=== PATIENT | female | born 1985 | race Caucasian/White ===

== ENCOUNTER 2018-09-15 05:36 | Emergency (ER) | payer OTHER ==
[~2018-09-15] VITALS: Ht 165.1 cm; Wt 77.1 kg
--- OUTSIDE RECORDS SUMMARY | 2018-09-15 05:43 | XMS REPORT | Continuity of Care Document ---
Author Organization Unknown Address Unknown Allergies There is no data. Medications There is no data. Problems There is no data. Procedures There is no data. Results There is no data. Encounters ACCT No. Visit Date/Time Discharge Status Pt. Type Provider Facility Loc./Unit Complaint [id number] 08/07/2018 15:00:00 08/07/2018 23:59:59 [facility] Outpatient [facility]
[2018-09-15] MEDS ORDERED: morphine INJ 10 MG/ML 1ML (SYR OR VIAL) IM STA (05:49)
[2018-09-15] MEDS ORDERED: ONDANSETRON 4 MG (ZOFRAN) ORAL DISSOLVE TAB PO STA (05:49)
[2018-09-15] MEDS ORDERED: BUPIVACAINE 0.5% 30 ML (SENSORCAINE) VIAL INJ ONE (06:00)
[2018-09-15] MEDS ORDERED: CEPHALEXIN 250 MG (KEFLEX) CAP PO ONE (06:00)
--- NOTE | 2018-09-15 06:00 | ED Upper Extremity ---
General Chief Complaint: Trauma-Non Activation Stated Complaint: CUT TIP OF LT RING FINGER OFF AT WORK Source: patient Exam Limitations: no limitations History of Present Illness Date Seen by Provider: September 15, 2018 Time Seen by Provider: 05:53 Initial Comments Patient is a 32 year old right handed female who presents with amputated distal fingertip of left ring finger. Injury occurred while at work while using a saw just prior to arrival. On exam, the patient has a partial amputation of the finger tip of the left index finger though the the fingernail with exposed cancellous bone. Onset: just prior to arrival Pain/Injury Location: left 2nd finger Allergies and Home Medications Allergies Coded Allergies: No Known Drug Allergies (Unverified , 09/15/18) Patient Home Medication List Home Medication List Reviewed: Yes Review of Systems Constitutional: no symptoms reported EENTM: no symptoms reported Respiratory: no symptoms reported Cardiovascular: no symptoms reported Gastrointestinal: no symptoms reported Genitourinary: no symptoms reported Musculoskeletal: see HPI Past [id number]-[id number] Hx Past Med/Social Hx: Reviewed Nursing Past Med/Soc Hx Patient Social History Recent Foreign Travel: No Contact w/Someone Who Travel: No Physical Exam Vital Signs Vital Signs - First Documented Capillary Refill : Height, Weight, BMI Height: '" Weight: lbs. oz. 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, no motor/sensory deficits, alert, oriented x 3 Progress/Results/Core Measures Results/Orders My Orders Orders - NOEL LOPEZ DO Ondansetron Oral Dissolve Tab (Zofran (09/15/18 05:49) Morphine Injection (Morphine Injection (09/15/18 05:49) Cephalexin Capsule (Keflex Capsule) (09/15/18 06:00) Bupivacaine 0.5% Injection (Sensorcaine (09/15/18 06:00) Finger(S) (09/15/18 05:49) Dipht,Pertuss(Acell),Tet Adult (Boostrix (09/15/18 06:15) Medications Given in ED Current Medications Medications Dose Ordered Sig/Elijah Route Start Time Stop Time Status Last Admin Dose Admin Bupivacaine HCl 30 ml ONCE ONCE INJ 09/15/18 06:00 09/15/18 06:01 DC 09/15/18 06:00 30 ML Cephalexin HCl 500 mg ONCE ONCE PO 09/15/18 06:00 09/15/18 06:01 DC 09/15/18 05:58 500 MG Diphtheria/ Tetanus/Acell Pertussis 0.5 ml ONCE ONCE IM 09/15/18 06:15 09/15/18 06:17 DC 09/15/18 06:12 0.5 ML Vital Signs/I&O 09/15/18 09/15/18 05:40 05:40 Temp 97.9 97.9 Pulse 115 115 Resp 20 20 B/P (MAP) 139/101 (114) 139/101 (114) Pulse Ox 97 97 Departure Communication (Admissions) Distal tip agitation of left index finger requiring surgical incision. Patient tetanus updated, antibiotics given. Digital block performed for pain control and wound irrigated and bandaged. Case discussed with Dr. Glez clinical science consultant for [facility] orthopedic surgery who requested the patient be kept nothing by mouth and be referred to his surgical clinic later this afternoon. Patient provided contact information and agrees to treatment plan. Impression Primary Impression: Injury of finger of left hand Disposition: 01 HOME, SELF-CARE Condition: Improved Departure-Patient Inst. Referrals: MATEUS GLEZ DO Patient Instructions: Common Finger Injuries (DC) Add. Discharge Instructions: Please do not eat or drink after leaving the emergency department department until follow up later today with orthopaedic surgeon. Leave bandage in place and wear arm sling. Contact Dr. Glez's surgical clinic this morning at for follow up time and clinic address. All discharge instructions reviewed with patient and/or family. Voiced understanding. NOEL LOPEZ DO September 15, 2018 06:00
[2018-09-15] MEDS ORDERED: TETANUS,DIPTH,PERTUSS P/F (BOOSTRIX) 0.5 ML VIAL IM ONE (06:15)
[2018-09-15 06:40] VITALS: BP 131/89
--- NOTE | 2018-09-15 07:29 | Diagnostic Imaging Report ---
INDICATION: Laceration. Comparison is made with prior examination from 09/15/2018. FINDINGS: There has been a partial amputation of the distal aspect of the left fourth finger. There is questionable bone exposure. A minimally displaced tuft fracture cannot be excluded. There is no other fracture or dislocation. IMPRESSION: Partial amputation of the distal aspect of the left fourth finger with questionable tuft fracture. Possibility of exposed bone cannot be excluded. Recommend clinical correlation. Dictated by: Dictated on workstation # [id number]
== END 2018-09-15 06:35 | disposition home or self-care (01) ==
LOC: ER FS 05:39
DX: S68.114A Complete traumatic metacarpophalangeal amputation of right ring finger, initial encounter (principal); Z23 Encounter for immunization; W31.89XA Contact with other specified machinery, initial encounter; Y92.59 Other trade areas as the place of occurrence of the external cause; Y99.0 Civilian activity done for income or pay
CPT/HCPCS: 73140; 90471; 90715; 96372